=== PATIENT | male | born 1960 | race Caucasian/White ===

== ENCOUNTER 2017-11-17 16:16 | Emergency (ER) | payer BC ==
--- NOTE | 2017-11-17 17:59 | ER Document Report ---
ED General - General Chief Complaint: Leg Swelling Stated Complaint: LEG PAIN Time Seen by Provider: 11/17/17 16:45 TRAVEL OUTSIDE OF THE [place] IN LAST 30 DAYS: No - HPI Patient complains to provider of: Right leg swelling Notes: Patient was swelling to the right knee going up his thigh patient states recently traveled from [place] concern for a DVT. Patient denies a history of DVTs in the past. Denies any injury to the leg. Patient ambulating without any difficulty denies fever chills nausea vomiting diarrhea. - Related Data Allergies/Adverse Reactions: No Known Allergies Allergy (Unverified 11/17/17 16:20) Past Medical History - Social History Smoking Status: Current Every Day Smoker Chew tobacco use (# tins/day): No Frequency of alcohol use: Social Drug Abuse: None Family History: Reviewed & Not Pertinent Patient has suicidal ideation: No Patient has homicidal ideation: No - Past Medical History Cardiac Medical History: Reports: Hx Congestive Heart Failure Renal/ Medical History: Denies: Hx Peritoneal Dialysis Review of Systems - Review of Systems Constitutional: No symptoms reported EENT: No symptoms reported Cardiovascular: No symptoms reported Respiratory: No symptoms reported Gastrointestinal: No symptoms reported Genitourinary: No symptoms reported Male Genitourinary: No symptoms reported Musculoskeletal: Leg swelling Skin: No symptoms reported Hematologic/Lymphatic: No symptoms reported Neurological/Psychological: No symptoms reported -: Yes All other systems reviewed and negative Physical Exam - Vital signs Interpretation: Normal - General General appearance: Appears well, Alert - HEENT Head: Normocephalic, Atraumatic Eyes: Normal Pupils: PERRL - Respiratory Respiratory status: No respiratory distress Chest status: Nontender Breath sounds: Normal Chest palpation: Normal - Cardiovascular Rhythm: Regular Heart sounds: Normal auscultation Murmur: No - Abdominal Inspection: Normal Distension: No distension Bowel sounds: Normal Tenderness: Nontender Organomegaly: No organomegaly - Back Back: Normal, Nontender - Extremities General upper extremity: Normal inspection, Nontender, Normal color, Normal ROM , Normal temperature General lower extremity: Normal color, Normal ROM, Normal temperature, Normal weight bearing. No: Gali's sign, Other - Right leg has slight slowing of the knee going up to the mid thigh with a mild amount of erythema measures no change in temperature of the skin no cellulitic process or other signs of trauma left leg unaffected - Neurological Neuro grossly intact: Yes Cognition: Normal Orientation: AAOx4 Leighton Coma Scale Eye Opening: Spontaneous Le[place]on Coma Scale Verbal: Oriented Litzy Coma Scale Motor: Obeys Commands Leighton Coma Scale Total: 15 Speech: Normal Motor strength normal: LUE, RUE, LLE, RLE Sensory: Normal - Psychological Associated symptoms: Normal affect, Normal mood - Skin Skin Temperature: Warm Skin Moisture: Dry Skin Color: Normal Course - Re-evaluation Re-evalutation: 11/17/17 20:34 Unclear etiology for the patient swelling as of the Doppler is negative. Patient was encouraged to ice the leg rested and elevated. Patient will be discharged home follow-up primary care physician. Discharge - Discharge Clinical Impression: Leg swelling Condition: Good Disposition: HOME, SELF-CARE Instructions: Dependent Edema ([facility]), Ice & Elevation ([facility]) Additional Instructions: No signs of blood clot today. We recommend icing and elevating the leg. Return to the ER for any other concerns. Would recommend taking Tylenol Motrin for pain control. Prescriptions: Ibuprofen [Motrin 600 mg Tablet] 600 mg PO Q8HP PRN #21 tablet PRN Reason:
--- NOTE | 2017-11-17 18:06 | RADIOLOGY REPORT (SQ) ---
EXAM DESCRIPTION: VENOUS UNILATERAL LOWER COMPLETED DATE/TIME: 11/17/2017 5:59 pm REASON FOR STUDY: rle swelling from [place] COMPARISON: None. TECHNIQUE: Dynamic and static hawkins scale and color images acquired of the right leg venous system. S elected spectral images acquired with additional compression and augmentation maneuvers. The contrala teral common femoral vein and saphenofemoral junction were also imaged. Images stored on PACS. LIMITATIONS: None. FINDINGS: COMMON FEMORAL: Normal phasicity, compression and augmentation. No visualized echogenic ma terial on hawkins scale. No defects on color images. FEMORAL: Normal compression and augmentation. No visualized echogenic material on hawkins scale. No defe cts on color images. POPLITEAL: Normal compression, augmentation. No visualized echogenic material on hawkins scale. No defec ts on color images. CALF VESSELS: Normal compression, augmentation. No visualized echogenic material on hawkins scale. No de fects on color images. GSV and SSV: Normal compression, augmentation. No visualized echogenic material on hawkins scale. No def ects on color images. ANY DEEP VENOUS INSUFFICIENCY: No. ANY EVIDENCE OF POPLITEAL CYST: No. OTHER: No other significant finding. CONTRALATERAL COMMON FEMORAL VEIN AND SAPHENOFEMORAL JUNCTION: Normal phasicity, compression and augmentation. No visualized echogenic material on hawkins scale. No de fects on color images. IMPRESSION: NO EVIDENCE DVT OR SVT IN THE RIGHT LEG. TECHNICAL DOCUMENTATION: JOB ID: [id number] [employer]- All Rights Reserved Reading location - IP/workstation name: [email or web address]
== END 2017-11-17 18:19 | disposition home or self-care (01) ==
LOC: ER 16:16
DX: M79.89 Other specified soft tissue disorders (principal); L53.9 Erythematous condition, unspecified; F17.200 Nicotine dependence, unspecified, uncomplicated
CPT/HCPCS: 93971; 99283